=== PATIENT | female | born 1975 | race African-American/Black ===

== ENCOUNTER → 2018-03-19 | Outpatient (CLI) | payer OTHER ==
[~2018-03-19] MED LIST: IBU600 PO; PER PO; PREN-85 PO
--- NOTE | 2018-03-19 15:42 | RADIOLOGY IMAGING REPORT ---
FACILITY: [facility] PATIENT NAME: CHAD WILKINSON : [id number] MR: [id number] V: [id number] EXAM DATE: [id number] ORDERING PHYSICIAN: DAYNA SALDIVAR TECHNOLOGIST: Minoo Villeda PROCEDURE:BILATERAL DIGITAL SCREENING MAMMOGRAM WITH CAD ASSISTED INTERPRETATION & 3D TOMOSYNTHESIS COMPARISON:None, this is the patients' baseline mammogram. INDICATIONS:screening FINDINGS: Moderately dense fibroglandular tissue is seen throughout the breasts. In the upper portion of the Right breast in the MLO view there is a focal area of increased density in the middle 1/3. This is best appreciated on Tomographic slice 36. Spot compression view is recommended for further evaluation. DIAGNOSTIC CATEGORY 0--INCOMPLETE: NEED ADDITIONAL IMAGING EVALUATION. RECOMMENDATIONS: ADDITIONAL MAMMOGRAPHIC VIEWS REQUIRED: RIGHT BREAST. IMPRESSION: BIRADS 0: Incomplete. Additional view of the Right breast recommended as described. Dictated by: Eneida Dobbins M.D. on 03/19/2018 at 14:58 Transcribed by: EDWARDO on 03/19/2018 at 15:04 Approved by: Eneida Dobbins M.D. on 03/19/2018 at 15:41 [facility]
== END ==
LOC: MAMO 00:21
PROVIDERS: ATTEND Obstetrics & Gynecology
DX: R92.2 Inconclusive mammogram (principal)
CPT/HCPCS: 77063; 77067

== ENCOUNTER → 2018-05-05 | Outpatient (CLI) | payer OTHER | LOC: MAMO 00:44 | PROVIDERS: ATTEND Obstetrics & Gynecology | DX: Z02.9 Encounter for administrative examinations, unspecified (principal) ==

== ENCOUNTER → 2018-05-19 | Outpatient (CLI) | payer OTHER ==
--- NOTE | 2018-05-20 10:09 | RADIOLOGY IMAGING REPORT ---
[place] [facility] [place] NAME: CHAD WILKINSON : [id number] MR: [id number] V: [id number] EXAM DATE: ORDERING PHYSICIAN: DAYNA SALDIVAR TECHNOLOGIST: Mary Craig PROCEDURE:RIGHT DIGITAL DIAGNOSTIC MAMMOGRAM WITH CAD ASSISTED INTERPRETATION & 3D TOMOSYNTHESIS COMPARISON:Prior mammograms 03/19/18 INDICATIONS:further evaluation FINDINGS: The patient returns for a rolled Right MLO view and a Spot compression view in the Right MLO projection. The focal asymmetry in the upper portion of the Right breast on the recent Right MLO view appeared freely compressible and apparently represented a summation shadow. There is no demonstration of malignant appearing mass or calcifications in the Right breast. DIAGNOSTIC CATEGORY 1--NEGATIVE. RECOMMENDATIONS: ROUTINE MAMMOGRAM AND CLINICAL EVALUATION. IMPRESSION: BIRADS 1: Negative. No significant abnormality of the Right breast is seen Dictated by: Eneida Dobbins M.D. on 05/19/2018 at 17:18 Transcribed by: FIX on 05/20/2018 at 8:01 Approved by: Eneida Dobbins M.D. on 05/20/2018 at 10:08 [facility]
== END ==
LOC: MAMO 02:59
PROVIDERS: ATTEND Obstetrics & Gynecology
DX: R92.2 Inconclusive mammogram (principal)
CPT/HCPCS: 77061; 77065